=== PATIENT | male | born 1995 | race Caucasian/White ===

== ENCOUNTER 2020-01-16 08:48 | Emergency (ER) | payer SELFPAY ==
[~2020-01-16] VITALS: Ht 185.4 cm; Wt 102.9 kg
[2020-01-16 09:02] VITALS: BP 143/73
[2020-01-16] MEDS ORDERED: predniSONE 20 MG TABLET ONE (09:48)
[2020-01-16] MEDS: predniSONE 20 MG TABLET PO ONE (09:52)
[2020-01-16] MEDS ORDERED: PRED-220 PO (09:53)
--- NOTE | 2020-01-16 09:54 | ED.ADGEN ---
Past Medical History Past Medical History: Asthma, Other Additional Past Medical Histor: PSORASIS Past Surgical History: No Surgical History Smoking Status: Current Every Day Smoker Additional Information: 1 PPD Alcohol Use: None General Adult EDM: Chief Complaint: SKIN RASH/ABSCESS HPI: HPI: Patient is a well-appearing 24-year-old male who arrives ambulatory to the emergency department complaining of a rash which has been ongoing now for 5 days. Patient reports his rash is gotten progressively worse around his face as well as his upper extremities with itching being his greatest symptom. Patient reports initially he thought this was poison bruce however he has not been exposed to any thing from the outdoors. Patient does state he works around chemicals regularly and believes may be that possibly he is coming contact with a chemical that has caused him to suffer from this allergy. The patient denies any shortness of air. He further denies any chest pain, nausea or symptoms otherwise. He is awake, alert and nontoxic-appearing. Review of Systems: Review of Systems: Constitutional: Denies fever or chills. [] Eyes: Denies change in visual acuity. [] HENT: Denies nasal congestion or sore throat. [] Respiratory: Denies cough or shortness of breath. [] Cardiovascular: Denies chest pain or edema. [] GI: Denies abdominal pain, nausea, vomiting, bloody stools or diarrhea. [] : Denies dysuria. [] Musculoskeletal: Denies back pain or joint pain. [] Integument: Reports to rash and itching. [] Neurologic: Denies headache, focal weakness or sensory changes. [] Endocrine: Denies polyuria or polydipsia. [] Lymphatic: Denies swollen glands. [] Psychiatric: Denies depression or anxiety. [] Allergies: Allergies: Allergies Coded Allergies Type Severity Reaction Last Updated Verified Penicillins Allergy Intermediate unknown 01/16/20 Yes Uncoded Allergies Type Severity Reaction Last Updated Verified BEE STINGS Allergy Severe ANAPHYLAXIS 01/16/20 Physical Exam: PE: Constitutional: Well developed, well nourished, no acute distress, non-toxic appearance. [] HENT: Normocephalic, atraumatic, bilateral external ears normal, oropharynx moist, no oral exudates, nose normal. [] Eyes: PERRLA, EOMI, conjunctiva normal, no discharge. [] Neck: Normal range of motion, no tenderness, supple, no stridor. [] Cardiovascular:Heart rate regular rhythm, no murmur [] Lungs & Thorax: Bilateral breath sounds clear to auscultation [] Abdomen: Bowel sounds normal, soft, no tenderness, no masses, no pulsatile masses. [] Skin: Patient has what appears to be a maculopapular rash of the upper extremities as well as his cheeks bilaterally. There is also swelling of the upper lip consistent with what appears to be an acute allergy. This rash has the appearance of what appears to be Dali dermatitis. There is no cellulitic or petechial character present. The rash itself is nontender upon palpation. Back: No tenderness, no CVA tenderness. [] Extremities: No tenderness, no cyanosis, no clubbing, ROM intact, no edema. [] Neurologic: Alert and oriented X 3, normal motor function, normal sensory function, no focal deficits noted. [] Psychologic: Affect normal, judgement normal, mood normal. [] Current Patient Data: Vital Signs: Vital Signs Date Time Temp Pulse Resp B/P (MAP) Pulse Ox O2 Delivery O2 Flow Rate FiO2 01/16/20 09:02 98.1 76 17 143/73 (96) 98 Room Air 98.1 EKG: EKG: [] Heart Score: Risk Factors: Risk Factors: DM, Current or recent (<one month) smoker, HTN, HLP, family history of CAD, obesity. Risk Scores: Score 0 - 3: 2.5% MACE over next 6 weeks - Discharge Home Score 4 - 6: 20.3% MACE over next 6 weeks - Admit for Clinical Observation Score 7 - 10: 72.7% MACE over next 6 weeks - Early Invasive Strategies Radiology/Procedures: Radiology/Procedures: [] Course & Med Decision Making: Course & Med Decision Making Pertinent Labs and Imaging studies reviewed. (See chart for details) [] Dragon Disclaimer: Dragon Disclaimer: This electronic medical record was generated, in whole or in part, using a voice recognition dictation system. Departure Departure Impression: Primary Impression: Contact dermatitis Disposition: 01 DC HOME SELF CARE/HOMELESS Condition: GOOD Referrals: NO PCP (PCP) Patient Instructions: Contact Dermatitis Scripts Prednisone (PREDNISONE ) 10 Mg Tablet 10 MG PO UD for PREDNISONE TAPER, #39 TAB 0 Refills Take 6 tablets by mouth twice a day for 3 days, then take 4 tablets by mouth twice a day for 3 days, then take 2 tablet by mouth twice a day for 3 days, then take 1 tablet by mouth daily x 3 days, then stop. Prov: LAUREN VENEGAS DO 01/16/20 LAUREN VENEGAS DO Jan 16, 2020 09:54
== END 2020-01-16 09:59 | disposition home or self-care (01) ==
LOC: ER 08:48
DX: L23.7 Allergic contact dermatitis due to plants, except food (principal); R21 Rash and other nonspecific skin eruption; J45.909 Unspecified asthma, uncomplicated; F17.200 Nicotine dependence, unspecified, uncomplicated; Z88.0 Allergy status to penicillin; Z91.030 Bee allergy status
CPT/HCPCS: 99283; J7512